=== PATIENT | female | born 1995 | race African-American/Black ===

== ENCOUNTER 2021-04-05 18:21 | Emergency (ER) | payer SELFPAY ==
[~2021-04-05] VITALS: Ht 174 cm; Wt 90.7 kg
[2021-04-05] MEDS ORDERED: AUGMENTIN 875-1 EACH PO (20:34)
[2021-04-05 20:45] VITALS: BP 139/100
== END 2021-04-05 20:45 | disposition home or self-care (01) ==
LOC: FSED 20:35
DX: K12.2 Cellulitis and abscess of mouth (principal); F17.210 Nicotine dependence, cigarettes, uncomplicated
CPT/HCPCS: 99282